=== PATIENT | male | born 1985 | race Caucasian/White ===

== ENCOUNTER 2016-11-15 13:35 | Emergency (ER) | payer OTHER ==
[~2016-11-15] VITALS: Ht 165.1 cm; Wt 69.1 kg
[2016-11-15 13:46] VITALS: Ht 165.1 cm; Wt 69.1 kg
[2016-11-15] MEDS ORDERED: AMPH15CA7 PO (14:40)
[2016-11-15] MEDS ORDERED: BUSP30TA2 PO (14:40)
[2016-11-15] MEDS ORDERED: ALPR1TAB3 PO (14:40)
[2016-11-15] MEDS ORDERED: AMPH10TA2 PO (14:40)
[2016-11-15] MEDS ORDERED: CITA10TA8 PO (14:40)
[2016-11-15 15:45] VITALS: O2SAT 99
--- NOTE | 2016-11-15 15:50 | DIAGNOSTIC IMAGING REPORT ---
CHEST ONE VIEW PORTABLE CLINICAL HISTORY: CHEST PAIN dyspnea COMPARISON STUDY: No previous studies for comparison. FINDINGS: The bones soft tissues and hemidiaphragms are normal. The cardiomediastinal silhouette is normal. The lungs are clear. The pulmonary vasculature is normal. IMPRESSION: Negative chest. Electronically signed by: Allen Blum M.D. 11/15/2016 3:48 PM Dictated Date/Time: 11/15/2016 3:47 PM
[2016-11-15 16:05] LABS: POINT OF CARE TROPONIN I 0.01 ng/ml (0-0.045)
[2016-11-15 16:12] LABS: BASO % 0.4 %; BASO ABS # 0.03 K/uL (0-0.2); COMPLETE YES; EOS % 1.9 %; HEMATOCRIT 45.5 % (42-52); IG% 0.1 %; LYMPH % 34.1 %; LYMPH ABS # 2.32 K/uL (1.2-3.4); MEAN CELL VOLUME 82.1 fL (80-100); MEAN CORPUSCULAR HEMOGLOBIN 28.9 pg (25-34); MEAN CORPUSCULAR HGB CONC 35.2 g/dl (32-36); MEAN PLATELET VOLUME 10.2 fL (7.4-10.4); MONO % 6.6 %; NEUT % 56.9 %; PLATELET COUNT 170 K/uL (130-400); RED BLOOD COUNT 5.54 M/uL (4.7-6.1)
[2016-11-15 16:32] LABS: BUN/CREATININE RATIO 8.2 (10-20); CALCIUM 8.8 mg/dl (8.5-10.1); POTASSIUM 3.3 mmol/L (3.5-5.1)
[2016-11-15] MEDS ORDERED: LORAZEPAM 1 MG TAB SL STA (17:37)
[2016-11-15 18:04] VITALS: BP 120/68; PULSE 70; TEMP 36.8; O2SAT 99
--- NOTE | 2016-11-15 19:36 | EMERGENCY ROOM VISIT NOTE ---
History First contact with patient: 14:45 Chief Complaint: CARDIAC ASSESSMENT Stated Complaint: NUMBNESS AND PAIN L ARM TO CHEST, BACK PAIN Nursing Triage Summary: L arm pain radiating to chest, worsens with movement of L arm History of Present Illness The patient is a 30 year old male who presents to the Emergency Room with complaints of left-sided chest pain radiating into the left shoulder and arm. The patient reports that he has had this discomfort for the past few days. The pain is worsened when he moves his shoulder. He denies any current neck pain, but does report a history of chronic neck tightness and discomfort. He denies any known history of neck injuries or left upper extremity radiculitis. The patient denies any recent trauma or injury to the shoulder, back or chest. 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 The patient has had regular cardiac follow-up that has been normal. The patient denies any history of coronary artery disease. He smokes 4 packs of cigarettes daily. The patient is also requesting an HIV test. He reports having a prior relationship with an HIV positive male. His last HIV test approximately one year ago was normal. He currently does not have a family doctor, and is requesting this testing. At the current time, he denies any chest pain, but rates his shoulder discomfort a 4 out of 10. He denies any paresthesias or numbness of the left upper extremity. Review of Systems HEENT: Denies dizziness, visual problems, hearing loss, tinnitus. Denies difficulty swallowing or oral lesions. PULMONARY: Denies cough, shortness of breath, sputum production or hemoptysis. CARDIOVASCULAR: Denies palpitations, dyspnea on exertion, orthopnea or peripheral edema. Otherwise see history of present illness. GASTROINTESTINAL: Denies diarrhea, constipation, nausea, vomiting, or abdominal pain. GENITOURINARY: Denies dysuria, frequency, urgency or nocturia. NEUROLOGIC: Denies history of epilepsy, CVA, TIA or chronic headaches. MUSCULOSKELETAL: Denies history of joint tenderness/swelling. SKIN: Denies rashes or lesions. PSYCHIATRIC: Denies history of depression or mental illness. ENDOCRINE: Denies history of diabetes or thyroid disorders. Past Medical/Surgical History Medical Problems: (1) Chronic lumbar pain (2) Subaortic stenosis Surgical Problems: (1) History of heart surgery Family History FH: diabetes mellitus FH: heart disease FH: hypertension Social History Smoking Status: Current Every Day Smoker Alcohol Use: occasionally Marital Status: single Housing Status: lives alone Occupation Status: unemployed Current/Historical Medications Scheduled Alprazolam (Xanax), 1 MG PO Q6H Amphetamine-Dextroamphetamine 10MG (Adderall 10MG), 10 MG PO DAILY Amphetamine-Dextroamphetamine 15MG (Adderall Xr 15MG), 15 MG PO DAILY Buspirone Hcl (Buspirone Hcl), 45 MG PO DAILY Citalopram Hydrobromide (Celexa), 10 MG PO DAILY Allergies Coded Allergies: Aspirin (Verified Adverse Reaction, Unknown, CLOTTING ISSUES, 11/15/16) Physical Exam Vital Signs Date Time Temp Pulse Resp B/P Pulse Ox O2 Delivery O2 Flow Rate FiO2 11/15/16 18:04 36.8 70 18 120/68 99 11/15/16 17:35 70 18 120/68 99 Room Air 11/15/16 16:40 70 18 114/82 99 Room Air 11/15/16 15:50 70 18 126/68 99 Room Air 11/15/16 15:45 99 Room Air 11/15/16 13:46 36.8 89 18 124/75 99 Room Air Physical Exam CONSTITUTIONAL: Healthy and well nourished. Alert and oriented X 3 with positive affect. Patient does not appear in any acute distress. HEENT: Normocephalic, atraumatic. Pupils equal, round and reactive. Ears and nares are clear. No sclerae icterus or conjunctival injection/pallor. OROPHARYNX: No oral lesions, posterior pharyngeal erythema or exudates. NECK: Full active range of motion without discomfort. No JVD or carotid bruits. RESPIRATORY: Clear to auscultation bilaterally with no wheezing, crackles, rhonchi or stridor. CARDIOVASCULAR: Regular rate and rhythm with no murmurs, rubs or gallops. GASTROINTESTINAL: Bowel sounds present in all quadrants. Soft and nontender to palpation. MUSCULOSKELETAL: Examination shows general tenderness to palpation about the left shoulder. He has worsening discomfort of the posterior shoulder region with adduction across the chest. No focal tenderness to the distal clavicle or acromioclavicular joint. Negative drop arm test. Negative apprehension test. Equal hand payroll auditor bilaterally. Distal pulses are intact. INTEGUMENTARY: No rash or other significant dermatologic conditions noted. HEMATOLOGIC: No ecchymosis or petechiae noted. NEUROLOGIC: Cranial nerves II-XII grossly intact. No focal neurologic deficits noted. Medical Decision & Procedures ER Provider Diagnostic Interpretation: My interpretation of an ECG shows a normal sinus rhythm of [address] elevation or other conduction abnormalities. Computer reading suggests a possible left atrial enlargement and left ventricular hypertrophy. No prior ECGs are available for comparison. My interpretation of a portable chest x-ray does not show any consolidations, pneumothorax or cardiomegaly. Radiologist report is as follows: CHEST ONE VIEW PORTABLE CLINICAL HISTORY: CHEST PAIN dyspnea COMPARISON STUDY: No previous studies for comparison. FINDINGS: The bones soft tissues and hemidiaphragms are normal. The cardiomediastinal silhouette is normal. The lungs are clear. The pulmonary vasculature is normal. IMPRESSION: Negative chest. Laboratory Results 11/15/16 15:40 Red Blood Count 5.54, Mean Corpuscular Volume 82.1, Mean Corpuscular Hemoglobin 28.9, Mean Corpuscular Hemoglobin Concent 35.2, Mean Platelet Volume 10.2, Neutrophils (%) (Auto) 56.9, Lymphocytes (%) (Auto) 34.1, Monocytes (%) (Auto) 6.6, Eosinophils (%) (Auto) 1.9, Basophils (%) (Auto) 0.4, Neutrophils # (Auto) 3.86, Lymphocytes # (Auto) 2.32, Monocytes # (Auto) 0.45, Eosinophils # (Auto) 0.13, Basophils # (Auto) 0.03 11/15/16 15:40 Test 11/15/16 15:40 11/15/16 15:44 White Blood Count 6.80 K/uL (4.8-10.8) Red Blood Count 5.54 M/uL (4.7-6.1) Hemoglobin 16.0 g/dL (14.0-18.0) Hematocrit 45.5 % (42-52) Mean Corpuscular Volume 82.1 fL (80-100) Mean Corpuscular Hemoglobin 28.9 pg (25-34) Mean Corpuscular Hemoglobin Concent 35.2 g/dl (32-36) Platelet Count 170 K/uL (130-400) Mean Platelet Volume 10.2 fL (7.4-10.4) Neutrophils (%) (Auto) 56.9 % Lymphocytes (%) (Auto) 34.1 % Monocytes (%) (Auto) 6.6 % Eosinophils (%) (Auto) 1.9 % Basophils (%) (Auto) 0.4 % Neutrophils # (Auto) 3.86 K/uL (1.4-6.5) Lymphocytes # (Auto) 2.32 K/uL (1.2-3.4) Monocytes # (Auto) 0.45 K/uL (0.11-0.59) Eosinophils # (Auto) 0.13 K/uL (0-0.5) Basophils # (Auto) 0.03 K/uL (0-0.2) RDW Standard Deviation 41.4 fL (36.4-46.3) RDW Coefficient of Variation 13.7 % (11.5-14.5) Immature Granulocyte % (Auto) 0.1 % Immature Granulocyte # (Auto) 0.01 K/uL (0.00-0.02) Anion Gap 7.0 mmol/L (3-11) Est Creatinine Clear Calc Drug Dose 93.1 ml/min Estimated GFR () 115.7 Estimated GFR (Non- 99.8 BUN/Creatinine Ratio 8.2 (10-20) Calcium Level 8.8 mg/dl (8.5-10.1) Total Bilirubin 1.8 mg/dl (0.2-1) Direct Bilirubin 0.2 mg/dl (0-0.2) Aspartate Amino Transf (AST/SGOT) 15 U/L (15-37) Alanine Aminotransferase (ALT/SGPT) 33 U/L (12-78) Alkaline Phosphatase 69 U/L (45-117) Total Creatine Kinase 133 U/L (39-308) Total Protein 7.2 gm/dl (6.4-8.2) Albumin 4.3 gm/dl (3.4-5.0) Lipase 54 U/L (73-393) HIV (1&2) Ab and P24 Ag, 4th Gener NEG (NEG) Bedside D-Dimer 64 ng/mlFEU (0-450) Bedside Troponin I 0.010 ng/ml (0-0.045) The above labs were reviewed. Bedside d-dimer and troponin are normal. HIV test is negative. Remaining labs are also otherwise normal. Medications Administered Medications (Trade) Dose Ordered Sig/Vic Route Start Time Stop Time Status Last Admin Dose Admin Lorazepam (Ativan Tab) 1 mg NOW STAT SL 11/15/16 17:37 11/15/16 17:39 DC 11/15/16 17:45 1 MG ED Course Patient history and physical exam were performed. Nurse's notes were reviewed. Vital signs were reviewed and were normal. I did have the patient sign informed consent for HIV testing. IV access was established, and labs were drawn. ECG and portable chest x-ray were normal. Review of labs shows no acute abnormalities. Bedside troponin and d-dimer were normal. HIV testing was negative. It is noted that the patient started to become quite anxious near the end of his evaluation. The patient reports that he usually takes Xanax at home. At that point, I had called the lab and they indicated that his HIV testing would be completed in 10 minutes. The patient also went to go outside and smoke a cigarette. He did accept lorazepam 0.5 mg. Negative HIV test results were discussed with the patient. I did encourage the patient to find a local PCP for further follow-up and management. The patient was happy with plan of care, voiced understanding of all discharge instructions, and denied any pain at the time of discharge. Medical Decision Patient presents to the emergency department with complaint of left upper chest and shoulder pain. His clinical exam is most consistent with a chest wall strain and shoulder etiology. His workup today is not suggestive of myocardial infarction or pulmonary embolus. His chest x-ray does not show any consolidations or suspicious masses. The patient was also very concerned about his HIV status. He did sign an informed consent for HIV testing which was negative. At this point, I do not feel that further hospitalist evaluation is warranted. Impression Primary Impression: Chest wall pain Additional Impressions: Left shoulder pain Anxiety Departure Information Referrals No Doctor, Assigned (PCP) Patient Instructions My [facility] Health Problem Qualifiers Additional Impressions: Left shoulder pain Chronicity: acute Qualified Codes: M25.512 - Pain in left shoulder
== END 2016-11-15 18:04 | disposition home or self-care (01) ==
LOC: C.EDB 13:36
DX: R07.89 Other chest pain (principal); M25.512 Pain in left shoulder; F41.9 Anxiety disorder, unspecified; M54.5 Low back pain; G89.29 Other chronic pain; Q24.4 Congenital subaortic stenosis; Z83.3 Family history of diabetes mellitus; Z82.49 Family history of ischemic heart disease and other diseases of the circulatory system; F17.210 Nicotine dependence, cigarettes, uncomplicated; Z79.899 Other long term (current) drug therapy